=== PATIENT | female | born 1965 | race Caucasian/White ===

== ENCOUNTER 2023-07-17 12:04 | Emergency (ER) | payer MEDICARE, MEDICAID, SELFPAY ==
[2023-07-17] VITALS (9 sets, daily range): BP systolic 127–186; BP diastolic 74–97; PULSE 69–91; RESP 9–18; TEMP 36.9; O2SAT 98–100
--- NOTE | ~2023-07-17 | CT_ITS ---
EXAMINATION: CT abdomen pelvis w con DATE: 07/17/2023 15:14 INDICATION: n/v abdominal pain TECHNIQUE: Computed tomography (CT) of the abdomen and pelvis was performed with 100 mL Omnipaque-350 intravenous contrast. Automated exposure control and iterative reconstruction technique were employe d. The dose-length product was 186.70 mGy-cm. COMPARISON: 05/07/2011. FINDINGS: Lower thorax: Severe emphysematous change. Liver: Multiple cavernous hemangiomas. Biliary/Gallbladder: Gallbladder is absent. Mild intra and extrahepatic duct dilation likely secondar y to cholecystectomy. Pancreas: No mass or duct dilation. Spleen: Multiple hypodensities, likely cysts or hemangiomas, stable. Adrenals:No mass. Kidneys: 1 cm indeterminate density right midpole lesion. Additional right renal hypodensities too sm all to characterize but likely represent cysts. GI tract: Mild distal esophageal and gastric wall edema. No small or large bowel dilation. Normal yousuf endix. Mesentery/Peritoneum: No ascites, mass, or free air. Retroperitoneum: No mass. Atherosclerotic abdominal aortic and/or arterial calcifications. Pelvis: The urinary bladder is decompressed by a suprapubic catheter. Absent uterus. Ovaries not conf idently identified. Soft Tissues: Soft tissue defect in the left inguinal canal with overlying bandage material. Bilatera l inguinal calcifications. Dural calcification at the level of S1. Bones: Severely decreased bone mineral density. Left femoral head resection/arthroplasty removal, co rrelate with surgical history. Superior migration of the remaining proximal left femur. Dystrophic ca lcification about the right hip. Small right and moderate left hip joint fluid collections. IMPRESSION: Severe emphysematous change. Mild esophagitis/gastritis. 1 cm indeterminate right midpole lesion, recommend nonemergent MRI or CT without and with contrast fo r further evaluation. Postsurgical changes in the left hip, femoral head resection, superior dislocation of the remaining f emur, moderate hip joint effusion, overlying anterior soft tissue calcifications and potential soft t issue wound. Correlate clinically. Dystrophic calcifications about the right hip, with small hip joint effusion. Reviewed, dictated and finalized at location [facility]. IMPRESSION: Severe emphysematous change. Mild esophagitis/gastritis. 1 cm indeterminate right midpole lesion, recommend nonemergent MRI or CT withou t and with contrast for further evaluation. Postsurgical changes in the left hip, femoral head resection, superior dislocat ion of the remaining femur, moderate hip joint effusion, overlying anterior sof t tissue calcifications and potential soft tissue wound. Correlate clinically. Dystrophic calcifications about the right hip, with small hip joint effusion.
--- NOTE | ~2023-07-17 | XR_ITS ---
EXAMINATION: XR chest 1V portable DATE: 07/17/2023 14:52 INDICATION: Right chest pain. Abdominal pain. Nausea. TECHNIQUE: A single frontal view of the chest was obtained on 2 radiographs. COMPARISON: Chest 2 views 07/11/2014 FINDINGS: The lungs are hyperexpanded, consistent with emphysema. There is mild scarring at the lung apices. No pleural effusion or pneumothorax. The heart size is normal. IMPRESSION: 1. Stable mild scarring at the lung apices. 2. Emphysema. Reviewed, dictated and finalized at location [facility].
--- NOTE | 2023-07-17 13:40 | ED.ABDPAIN ---
HPI - Abdominal Pain General Chief Complaint: Abdominal Pain Stated Complaint: abdominal pain Time Seen by Provider: 07/17/23 13:33 History of Present Illness HPI narrative: 58-year-old female presenting to the emergency department for evaluation for evaluation nausea vomiting diarrhea and lower abdominal pain for the past 2 days. Patient does have a prior history of thoracic spine injury causing bladder dysfunction. Patient does have an suprapubic Wagner catheter. She has had this for approximately likely 17 years and it is changed monthly and is due to be changed on July 22. Related Data Allergies Allergy/AdvReac Type Severity Reaction Status Date / Time Sulfa (Sulfonamide Allergy Severe HIVES, Verified 07/17/23 12:05 Antibiotics) ITCHING PSEUDOEPHEDRINE HCL Allergy Severe HIVES Uncoded 07/17/23 12:05 Review of Systems Review of Systems: All systems reviewed & are unremarkable except as noted in HPI and below Exam Narrative: APPEARANCE: Well appearing, no pain, no distress, well-nourished. HEAD: normocephalic, atraumatic. EYES: PERRLA/EOMI, conjunctivae clear. NOSE: Normal no drainage EARS:TMS clear with good light reflex. THROAT: Pharynx clear, no exudate. NECK: Supple. No adenopathy, no masses. RESPIRATORY: Airway patent, respirations nonlabored. Clear to auscultation bilaterally, no rales, rhonchi, wheezing. CARDIOVASCULAR: Regular rate and rhythm without murmurs rubs or gallops. ABDOMINAL: Soft, nontender, nondistended, normal bowel sounds MUSCULOSKELETAL: Moves all extremities. Strength/ROM intact, No edema, No calf tenderness. NEURO: Alert. Cranial nerves II through XII intact. Good gait. Good coordination SKIN: Warm, dry. Normal Color Course Vital Signs Vital signs: Vital Signs Temperature 98.5 F 07/17/23 12:09 Pulse Rate 91 07/17/23 12:09 Respiratory Rate 18 07/17/23 12:09 Blood Pressure 127/74 07/17/23 12:09 Pulse Oximetry 100 07/17/23 12:09 Temperature 98.5 F 07/17/23 12:09 Pulse Rate 79 07/17/23 17:39 Respiratory Rate 16 07/17/23 17:39 Blood Pressure 127/80 07/17/23 17:39 Pulse Oximetry 98 07/17/23 17:39 MDM - Abdominal Pain MDM Narrative Medical decision making narrative: 58-year-old female present to the emergency department for evaluation of lower abdominal pain. Patient does have an indwelling Wagner catheter and UA was concerning for urinary tract infection, patient was started on Rocephin will be discharged home on Keflex. Patient has suprapubic Wagner catheter was exchanged in the emergency department. Patient is afebrile but does have a leukocytosis of 15.9 and a stable hemoglobin of 13.5. patient is being treated for a urinary tract infection. Patient was advised to have close follow-up with her primary care physician and was advised to have additional follow up due to the CT findings. Differential Diagnosis Differential diagnosis: Likely abdominal pain, acute appendicitis, calculus of kidney, constipation, diverticulitis, gastroenteritis, pancreatitis and small bowel obstruction Lab Data Attestation: I reviewed the patient's lab results. 07/17/23 13:57 07/17/23 13:57 Labs: Lab Results 07/17/23 07/17/23 Range/Units 13:57 14:00 WBC 15.9 H (4.5-10.0) K/mm3 RBC 4.63 (4.2-5.4) M/mm3 Hgb 13.5 (12.0-15.0) g/dL Hct 40.7 (37.0-47.0) % MCV 87.9 (80-100) fl MCH 29.2 (26-34) pg MCHC 33.2 (32-36) g/dl RDW 14.7 H (11.5-14.5) % Plt Count 351 (150-375) k/mm3 MPV 8.9 (7.4-10.4) fl Immature Gran % (Auto) 0.3 (0-0.5) % Neut % (Auto) 84.6 H (45.5-73.1) % Lymph % (Auto) 10.9 L (18.3-44.2) % Ross % (Auto) 4.0 (2.6-8.5) % Eos % (Auto) 0.1 (0-4.4) % Baso % (Auto) 0.1 L (0.2-1.2) % Lymph # (Auto) 1.73 (0.9-3.2) K/mm3 Ross # (Auto) 0.6 (0.1-0.6) K/mm3 Eos # (Auto) 0.0 (0-0.3) K/mm3 Baso # (Auto) 0.0 (0.0-0.1) K/mm3 Abs Immat Gran (auto) 0.05
[2023-07-17] MEDS: SODIUM CHLORIDE 0.9% IV 1,000 ML 999 ML IV CONT (13:49)
[2023-07-17] MEDS: ONDANSETRON INJ 4 MG/2 ML VIAL IV PUSH (13:49)
[2023-07-17] MEDS: HYDROmorphone HCL INJ (*CRX) 1 MG/ML SYR 0.5 MG IV PUSH (13:50)
[2023-07-17 14:06] LABS: Basophils Percent Auto 0.1 % (0.2-1.2); Eosinophils Percent Auto 0.1 % (0-4.4); Hematocrit 40.7 % (37.0-47.0); Hemoglobin 13.5 g/dL (12.0-15.0); Immature Granulocyte Absolute 0.05 K/mm3 (0.00-0.031); Immature Granulocyte Percent A 0.3 % (0-0.5); Lymphocytes Absolute Auto 1.73 K/mm3 (0.9-3.2); Lymphocytes Percent Auto 10.9 % (18.3-44.2); Mean Corpuscular HGB Conc 33.2 g/dl (32-36); Mean Corpuscular Hemoglobin 29.2 pg (26-34); Mean Corpuscular Volume 87.9 fl (80-100); Mean Platelet Volume 8.9 fl (7.4-10.4); Monocytes Absolute Auto 0.6 K/mm3 (0.1-0.6); Neutrophils Absolute Auto 13.5 K/mm3 (1.3-6.7); Neutrophils Percent Auto 84.6 % (45.5-73.1); Platelet Count Result 351 k/mm3 (150-375); Red Blood Count 4.63 M/mm3 (4.2-5.4); Red Cell Distribution Width 14.7 % (11.5-14.5); White Blood Count 15.9 K/mm3 (4.5-10.0)
[2023-07-17 14:17] LABS: INR 1.1; Prothrombin Time 14.8 Seconds (11.1-14.7)
[2023-07-17 14:18] LABS: Partial Thromboplastin Time 33.9 Seconds (22.3-36.8)
[2023-07-17 14:21] LABS: Alanine Aminotransferase 14 U/L (6-35); Albumin Level 4.1 g/dL (3.5-5.1); Alkaline Phosphatase 120 U/L (38-126); Anion Gap 4 mmol/L (4-12); Aspartate Amino Transferase 20 U/L (14-36); Bilirubin,Total 1.1 mg/dL (0.2-1.3); Blood Urea Nitrogen 11 mg/dL (7-17); Calcium 9.2 mg/dL (8.4-10.2); Carbon Dioxide 27 mmol/L (22-30); Chloride 103 mmol/L (98-107); Estimated CRCL calculation 105 ml/min; Estimated Glomerular Filt Rate > 60; Glucose 118 mg/dL (65-110); Lactic Acid Reflex 1.6 mmol/L (0.7-2.0); Lipase 17 U/L (23-300); Potassium 3.6 mmol/L (3.4-5.0); Sodium 134 mmol/L (137-145)
[2023-07-17 14:31] LABS: Appearance Urine Turbid (Clear); Bacteria Urine 4+ /hpf; Bilirubin Urine Negative (Negative); Blood Urine Trace (Negative); Color Urine Yellow (Yellow); Glucose Urine UA Negative (Negative); Ketones Urine Negative (Negative); Leukocyte Esterase Ur 3+ LEU/UL (Negative); Need Manual Microscopic Reviewed; Nitrate Urine Positive (Negative); Protein Urine 2+ mg/dL (Negative); RBC Urine 0-2 /hpf (0-2); Specific Grav Ur 1.011 (1.001-1.035); Squamous Epithelial Cell Urine Occasional /hpf (Few); Triple Phosphate Crystal Urine Present /hpf; pH Urine >=9.0 (5.0-9.0)
[2023-07-17 14:38] LABS: Add Urine Microscopic? YES
[2023-07-17] MEDS: diphenhydrAMINE HCl INJ 50 MG/ML VIAL 25 MG IV PUSH (14:40)
== END 2023-07-17 17:49 | disposition home or self-care (01) ==
PROVIDERS: Emergency Provider Emergency Medicine
DX: N39.0 Urinary tract infection, site not specified (principal); Z93.59 Other cystostomy status; J43.9 Emphysema, unspecified; K20.90 Esophagitis, unspecified without bleeding; K29.70 Gastritis, unspecified, without bleeding
CPT/HCPCS: 36415; 71045; 74177; 80053; 81001; 83605; 83690; 85025; 85610; 85730; 87077; 87086; 87088; 87186; 96361; 96365; 96375; 99284; J0696; J1170; J1200; J2405; J7030; Q9967

== ENCOUNTER 2023-08-01 09:15 | Outpatient (CLI) | payer MEDICARE, MEDICAID, SELFPAY ==
--- NOTE | ~2023-08-01 | CT_ITS ---
CT of the Abdomen: Indication: Kidney lesion Technique: 2.5 mm axial scans were obtained through the abdomen prior to and following intravenous a dministration of 100 cc of Omnipaque 350. Dose reduction technique was used on this scan by utilizing automated exposure control and iterative reconstruction technique. The dose-length product (DLP) was 317.94 mGy-cm. COMPARISON: 07/17/2023 Findings: Scans through the lung bases demonstrate moderate emphysematous change. Probable small right hepatic lobe hemangioma present. The spleen, pancreas, adrenals and left kidney are within normal limits. 8mm mass in the posterior margin of the right midpole probably does not sig nificantly enhance, the Hounsfield unit determinations are difficult due to the small size of the les ion. Cholecystectomy clips are present. There are atherosclerotic calcifications of the aorta. No ly mphadenopathy. Visualized bowel is unremarkable. No ascites. Partially imaged large peripheral enhancing fluid collection without left hip joint, with probable pr ior resection of femoral head and suspected prior removal arthroplasty hardware. No definite destruct rafael change seen to suggest acute osteomyelitis, though chronic infection is not excluded. There is carnes perolateral subluxation/dislocation of the femoral remnant with respect to the left acetabulum. Impression: 8 mm right renal lesion is felt to most likely represent a benign nonenhancing lesion, though precont rast Hounsfield units are difficult to ascertain due to the small size of the lesion. Consider follow -up exam in one year to ensure stability. Stable changes about the left hip joint, suggestive of joint effusion, possibly infected, with probab le prior removal of hardware. Chronic osteomyelitis is a potential consideration at the proximal left femur. Moderate to advanced emphysema at the lung bases. Reviewed, dictated and finalized at [facility]. Impression: 8 mm right renal lesion is felt to most likely represent a benign nonenhancing lesion, though precontrast Hounsfield units are difficult to ascertain due to t he small size of the lesion. Consider follow-up exam in one year to ensure stab ility. Stable changes about the left hip joint, suggestive of joint effusion, possibly infected, with probable prior removal of hardware. Chronic osteomyelitis is a potential consideration at the proximal left femur. Moderate to advanced emphysema at the lung bases.
== END 2023-08-01 09:16 | disposition home or self-care (01) ==
LOC: ANHIMG 09:15
PROVIDERS: PCP Physician Assistant Medical; Visit Provider Physician Assistant Medical
DX: N28.9 Disorder of kidney and ureter, unspecified (principal); J43.9 Emphysema, unspecified
CPT/HCPCS: 74170; Q9967